=== PATIENT | female | born 1970 | race Caucasian/White ===

== ENCOUNTER 2018-07-15 12:39 | Day surgery (SDC) | payer OTHER ==
[~2018-07-15] VITALS: Ht 172.7 cm; Wt 56.2 kg
[2018-07-15] MEDS ORDERED: LACTATED RINGERS 1,000 ML IV SCH (13:11)
[2018-07-15] MEDS ORDERED: AMLO-150 PO (13:14)
[2018-07-15 13:38] VITALS: BP 146/91
[2018-07-15] MEDS ORDERED: MIDAZOLAM 1 MG/ML, 2ML ONE (14:12)
[2018-07-15] MEDS ORDERED: FENTANYL PF 100 MCG/2ML ONE ×2 (14:13→14:51)
[2018-07-15] MEDS ORDERED: PROPOFOL 50 ML ONE (14:13)
[2018-07-15] MEDS ORDERED: FENTANYL PF 100 MCG/2ML IV PRN (14:30)
[2018-07-15] MEDS ORDERED: HALOPERIDOL 5 MG/ML IV PRN (14:30)
[2018-07-15] MEDS ORDERED: HYDROmorphone 2 MG/ML, 1ML IVPush PRN (14:30)
[2018-07-15] MEDS ORDERED: LABETALOL 5MG/ML, 20ML IV PRN (14:30)
[2018-07-15] MEDS ORDERED: MEPERIDINE/PF 25MG/0.5ML IVPush PRN (14:30)
[2018-07-15] MEDS ORDERED: hydrALAzine 20 MG/ML, 1ML IV PRN (14:30)
[2018-07-15] MEDS ORDERED: OXYcodone 5 MG/5 ML ORAL.SOL UDC PO PRN (14:30)
[2018-07-15] MEDS ORDERED: PROMETHAZINE 25 MG/ML, 1ML IV PRN (14:30)
[2018-07-15] MEDS ORDERED: ONDANSETRON 2MG/ML, 2ML ONE (14:31)
== END 2018-07-15 16:20 | disposition home or self-care (01) ==
LOC: OUT 12:39
PROVIDERS: ATTEND Internal Medicine
DX: K86.1 Other chronic pancreatitis (principal); I10 Essential (primary) hypertension
CPT/HCPCS: 43238; 88172; 88173; 88177; 88305; 88307; J2250; J2405; J2704; J3010; J7120